=== PATIENT | male | born 1945 | race Caucasian/White ===

== ENCOUNTER 2018-10-25 03:30 | Outpatient (CLI) | payer OTHER | END 2018-10-25 03:31 | disposition critical access hospital (66) | LOC: EMS 03:30 | PROVIDERS: ATTEND Surgery | DX: R51 Headache (principal); H57.13 Ocular pain, bilateral | CPT/HCPCS: A0425; A0429 ==

== ENCOUNTER 2018-10-25 03:44 | Emergency (ER) | payer OTHER ==
[2018-10-25] MEDS ORDERED: POLYMYXIN B/TRIMETH OPHTH DROPS EACHEYE STA (04:08)
[2018-10-25] MEDS ORDERED: PROPARACAINE 0.5% OPHTH DROPS 15 ML EACHEYE STA (04:08)
[2018-10-25] MEDS ORDERED: PSEUDOEPHEDRINE 30 MG TABLET PO STA (04:09)
[2018-10-25] MEDS ORDERED: LORATADINE 10 MG TABLET PO STA (04:09)
--- NOTE | 2018-10-25 04:10 | ED Physician Documentation ---
PD HPI URI - Stated complaint Stated Complaint: CONGESTION - Chief complaint Chief Complaint: Resp - History obtained from History obtained from: Patient - History of Present Illness Timing - onset: How many weeks ago (5) Timing duration: Weeks (5) Timing details: Gradual onset, Waxing and waning Pain level max: 7 Pain level now: 7 Associated symptoms: Nasal congestion, Rhinorrhea, Dry cough, Other (states eyes feel like they are "on fire" and "there is gravel in them" States drainage noted today. No FB. does not wear contacts.). No: Fever, Chills, Ear pain, Sinus pain, Sore throat, Chest pain, Dyspnea, NVD Improves by: Rest Worsened by: Activity, Breathing Recently seen: Other (placed on abx 3 weeks ago for chest congestion, states did not have pneumonia.) Review of Systems Constitutional: denies: Fever, Chills GI: denies: Abdominal Pain, Vomiting, Diarrhea Skin: denies: Rash Musculoskeletal: denies: Neck pain, Back pain Neurologic: denies: Focal weakness, Numbness PD PAST MEDICAL HISTORY - Past Medical History Past Medical History: Yes HEENT: None Musculoskeletal: Chronic back pain Derm: None - Past Surgical History Past Surgical History: Yes General: Other Ortho: Other - Present Medications Home Medications: Ambulatory Orders Medication Instructions Recorded Confirmed Acyclovir 200 mg PO DAILY 10/25/18 10/25/18 Calcium Carbonate/Vitamin D3 1 tab PO BID 10/25/18 10/25/18 [Calcium 250-Vit D3 125 Tablet] Cetirizine [ZyrTEC] 10 mg PO DAILY PRN #14 tablet 10/25/18 Doxazosin [Cardura] 4 mg PO DAILY 10/25/18 10/25/18 Doxycycline Hyclate 100 mg PO BID #20 capsule 10/25/18 Folic Acid 1 mg PO DAILY 10/25/18 10/25/18 HYDROcod/ACETAM 5/325 [Comstock 5/325] 1 tab PO BID 10/25/18 10/25/18 Hydroxychloroquine [Plaquenil] 200 mg PO DAILY 10/25/18 10/25/18 Meloxicam 7.5 mg PO DAILY 10/25/18 10/25/18 Omeprazole 20 mg PO DAILY 10/25/18 10/25/18 Polymyxin B/Trimeth Ophth Drop 1 drops EACHEYE Q3H 7 Days #1 10/25/18 [Polytrim Ophth Drops] bottle Prednisone 5 mg PO DAILY 10/25/18 10/25/18 - Allergies Allergies/Adverse Reactions: Allergies Allergy/AdvReac Type Severity Reaction Status Date / Time No Known Drug Allergies Allergy Verified 10/25/18 03:54 - Social History Does the pt smoke?: No Smoking Status: Never smoker Does the pt drink ETOH?: No Does the pt have substance abuse?: No - Immunizations Immunizations are current?: Yes - POLST Patient has POLST: No PD ED PE NORMAL - Vitals Vital signs reviewed: Yes - General General: Alert and oriented X 3, No acute distress - HEENT HEENT: PERRL, Moist mucous membranes, Other (Bilateral eyes have conjunctival injection with yellow drainage.) - Neck Neck: Supple, no meningeal sign - Cardiac Cardiac: RRR, Strong equal pulses - Respiratory Respiratory: No respiratory distress, Clear bilaterally - Abdomen Abdomen: Soft, Non tender, Non distended - Derm Derm: Warm and dry, No rash - Neuro Neuro: Alert and oriented X 3 - Psych Psych: Normal mood, Normal affect Results - Vitals Vitals: Vital Signs - 24 hr 10/25/18 10/25/18 10/25/18 03:49 04:18 05:24 Temperature 36.1 C L Heart Rate 55 L 51 L Respiratory 18 18 18 Rate Blood Pressure 186/92 H 146/94 H O2 Saturation 99 98 10/25/18 06:29 Temperature Heart Rate 65 Respiratory 17 Rate Blood Pressure 133/89 H O2 Saturation 98 Oxygen O2 Source Room air - Rads (name of study) cxr Radiology: Prelim report reviewed, EMP read contemporaneously, See rad report (RLL infiltrate) PD MEDICAL DECISION MAKING - ED course Complexity details: reviewed results, re-evaluated patient, considered differential, d/w patient ED course: 72-year-old male with bilateral conjunctivitis. Pain completely resolves with proparacaine. Will place on ophthalmic antibiotics. He also has a right lower lobe infiltrate on chest x-ray. Will place on doxycycline. He is well- appearing, nontoxic. Patient counseled regarding signs and symptoms for which I believe and urgent re-evaluation would be necessary. Patient with good un derstanding of and agreement to plan and is comfortable going home at this time This document was made in part using voice recognition software. While efforts are made to proofread this document, sound alike and grammatical errors may occur. Departure - Departure Disposition: 01 Home, Self Care Clinical Impression: Conjunctivitis Qualifiers: Conjunctivitis type: acute Acute conjunctivitis type: unspecified Laterality: bilateral Qualified Code(s): H10.33 - Unspecified acute conjunctivitis, bilateral Pneumonia Qualifiers: Pneumonia type: due to unspecified organism Laterality: right Lung location: lower lobe of lung Qualified Code(s): J18.1 - Lobar pneumonia, unspecified o rganism Condition: Good Instructions: ED Conjunctivitis Nonspecific, ED Pneumonia Adult Follow-Up: your,doctor in 1 week [Other] Prescriptions: Cetirizine [ZyrTEC] 10 mg PO DAILY PRN #14 tablet PRN Reason: Nasal Congestion Doxycycline Hyclate 100 mg PO BID #20 capsule Polymyxin B/Trimeth Ophth Drop [Polytrim Ophth Drops] 1 drops EACHEYE Q3H 7 Days #1 bottle Comments: Use the eyedrops as prescribed. This should improve over the next few days. You can use cool compresses at home as well. Artificial tears or gel tears will help as well with any discomfort. Hold your calcium while taking the antibiotics for the pneumonia.
--- NOTE | 2018-10-25 05:59 | XRAY Report ---
Reason: cough Procedure Date: 10/25/2018 Accession Number: [id number] / [id number] Procedure: XR - Chest 2 View X-Ray CPT Code: 31451 FULL RESULT: EXAM: CHEST RADIOGRAPHY EXAM DATE: 10/25/2018 05:53 AM. CLINICAL HISTORY: Cough. COMPARISON: None. TECHNIQUE: 2 views. FINDINGS: Lungs/Pleura: Right lower lobe infiltrate. No effusion or pneumothorax. Mediastinum: Heart and mediastinal contours are unremarkable. Other: None. IMPRESSION: Right lower lobe infiltrate. RADIA
[2018-10-25] MEDS ORDERED: DOXYCYCLINE 100 MG TABLET PO STA (06:08)
[2018-10-25 06:30] VITALS: BP 133/89
== END 2018-10-25 07:03 | disposition home or self-care (01) ==
LOC: ED 03:44
DX: J18.1 Lobar pneumonia, unspecified organism (principal); H10.33 Unspecified acute conjunctivitis, bilateral
CPT/HCPCS: 71046; 99283; A9270; J3490

== ENCOUNTER 2020-03-24 15:19 | Outpatient (CLI) | payer OTHER ==
--- NOTE | 2020-03-24 16:03 | XRAY Report ---
PROCEDURE: Knee 3 View BILAT INDICATIONS: OSTEOARTHRITIS,KNEE RIGHT TECHNIQUE: 3 views of each knee are obtained. COMPARISON: None. FINDINGS: Bones: No fractures or dislocations. No suspicious bony lesions. Severe medial compartment narrowi ng bilaterally. Moderate tricomponent foraminal periarticular osteophyte formation is present bilater ally. Soft tissues: Small bilateral knee joint effusions.. Chondrocalcinosis within the lateral compartment s bilaterally. IMPRESSION: 1. Bilateral osteoarthritis with medial compartment narrowing. 2. Chondrocalcinosis. 3. Small bilateral knee joint effusions. Reviewed by: Jess Tyson MD on 03/24/2020 4:01 PM PST Approved by: Jess Tyson MD on 03/24/2020 4:01 PM PST Station ID: [id number]
== END 2020-03-24 15:20 | disposition home or self-care (01) ==
LOC: DI 15:19
PROVIDERS: ATTEND Orthopaedic Surgery
DX: M17.0 Bilateral primary osteoarthritis of knee (principal); M11.262 Other chondrocalcinosis, left knee; M11.261 Other chondrocalcinosis, right knee; M25.462 Effusion, left knee; M25.461 Effusion, right knee